=== PATIENT | male | born 1955 | race Asian ===

== ENCOUNTER 2017-02-05 15:13 | Emergency (ER) | payer OTHER, MEDICAID ==
[~2017-02-05] VITALS: Ht 180.3 cm; Wt 49.9 kg
[~2017-02-05 15:13] MED LIST: BACTRIM-DS1 EA ORAL; CEPHALEXIN500 MG PO; DUAC GEL45 GM TP; UNOBMED
[2017-02-05 15:19] VITALS: BP 132/84
[2017-02-05] MEDS ORDERED: LORazepam 1mg tab ORAL ONE (15:45)
[2017-02-05 16:51] LABS: LYMPHOCYTES % (AUTO) 27.6 % (20.0-45.0); MEAN CORPUSCULAR HEMOGLOBIN 33.4 PG (27.0-31.0); MEAN CORPUSCULAR HGB CONC 35.5 G/DL (32.0-36.0); MEAN CORPUSCULAR VOLUME 94 FL (80-99); MONOCYTES % (AUTO) 7.4 % (1.0-10.0); NEUTROPHILS % (AUTO) 62.9 % (45.0-75.0); PLATELET COUNT 200 K/UL (150-450); RED BLOOD COUNT 4.07 M/UL (4.70-6.10); RED CELL DISTRIBUTION WIDTH 10.9 % (11.6-14.8); WHITE BLOOD COUNT 4.3 K/UL (4.8-10.8)
[2017-02-05 17:11] LABS: TROPONIN I < 0.30 ng/mL (<=0.30)
[2017-02-05 17:14] LABS: ALANINE AMINOTRANSFERASE 19 U/L (3-41); ALBUMIN/GLOBULIN RATIO 1.1 (1.0-2.7); ANION GAP 10 (5-15); ASPARTATE AMINO TRANSFERASE 27 U/L (5-40); CALCIUM 9.2 mg/dL (8.6-10.2); CARBON DIOXIDE 25 mEQ/L (20-30); CHLORIDE 103 mEQ/L (98-107); CREATININE 0.9 mg/dL (0.7-1.2); GLOMERULAR FILTRATION RATE > 60 mL/min (>60); HEMOLYSIS 4; POTASSIUM 3.5 mEQ/L (3.4-4.9); SODIUM 138 mEQ/L (135-145); TOTAL PROTEIN 7.8 g/dL (6.6-8.7)
[2017-02-05 17:24] LABS: CKMB 2.1 ng/mL (< 6.7)
[2017-02-05 18:28] VITALS: BP 128/87
[2017-02-05 18:29] VITALS: BP 132/84
--- NOTE | 2017-02-05 22:37 | Emergency Room Report ---
History of Present Illness General Chief Complaint: Medical Clearance Source: EMS Present Illness HPI Patient is a 61-year-old male in custody presenting for medical clearance. The patient states that he has chest pain. He states that he has an extensive medical history including a right bundle branch block, anxiety disorder, schizophrenia, AIDS. He states pain is an 8/10 dull ache to the mid chest and does not radiate. No known provoking relieving factors. He denies shortness of breath. He states that he occasionally gets chest pain when he becomes anxious. He has not seen a doctor for the past year. He denies any other symptoms including nausea, vomiting, fever, chills, abdominal pain Allergies: Coded Allergies: No Known Allergies (Unverified , 11/06/12) Patient History Past Medical History: see triage record Pertinent Family History: none Reviewed Nursing Documentation: PMH: Agreed, PSxH: Agreed Nursing Documentation-PMH Past Medical History: No History, Except For Hx Cardiac Problems: Yes - left bundle branch block Hx Diabetes: Yes Hx Cancer: Yes - liver cancer aids History Of Psychiatric Problem: Yes - Anxiety, depression, schizophrenia Review of Systems All Other Systems: negative except mentioned in HPI Physical Exam Vital Signs Date Time Temp Pulse Resp B/P Pulse Ox O2 Delivery O2 Flow Rate FiO2 02/05/17 15:09 97.9 68 16 128/89 97 Room Air Sp02 EP Interpretation: reviewed, normal General Appearance: no apparent distress, alert, GCS 15, non-toxic Head: normocephalic, atraumatic Eyes: bilateral eye PERRL, bilateral eye normal inspection ENT: hearing grossly normal, normal pharynx, no angioedema, normal voice Respiratory: chest non-tender, lungs clear, normal breath sounds, speaking full sentences Cardiovascular #1: regular rate, rhythm, no edema, no murmur Gastrointestinal: normal bowel sounds, non tender, soft, non-distended, no guarding, no rebound Musculoskeletal: back normal, gait/station normal, normal range of motion, non- tender Neurologic: alert, oriented x3, responsive, motor strength/tone normal, sensory intact, speech normal Psychiatric: memory normal, mood/affect normal, no suicidal/homicidal ideation , anxious Skin: normal color, no rash, warm/dry, well hydrated Medical Decision Making PA Attestation Dr. Fernandez is my supervising physician. Patient management was discussed with my supervising physician Diagnostic Impression: Primary Impression: Chest pain Qualified Codes: R07.9 - Chest pain, unspecified ER Course The patient is a 61 yo M in custody presenting for medical clearance due to chest pain. DDx considered but not limited to: ACS, angina, anxiety, muscle strain, malingering, among others PE: vitals WNL. NAD. Mildly anxious. Chest is non tender. RRR. No MRG Lungs CTA bilat EKG shows a right bundle branch block among other concerning findings. Multiple requests for EKG from [facility] were made. None have been delivered as of 4 hours after request. Cardiac markers are essentially negative. Police have decided to release the patient under their care and states that he is able to be discharged when he is released. The patient is discharged and needs to FU with PMD, cardiology, and psychiatry. He agrees. ER precautions given Laboratory Tests Test 02/05/17 16:34 White Blood Count 4.3 K/UL (4.8-10.8) L Red Blood Count 4.07 M/UL (4.70-6.10) L Hemoglobin 13.6 G/DL (14.2-18.0) L Hematocrit 38.4 % (42.0-52.0) L Mean Corpuscular Volume 94 FL (80-99) Mean Corpuscular Hemoglobin 33.4 PG (27.0-31.0) H Mean Corpuscular Hemoglobin Concent 35.5 G/DL (32.0-36.0) Red Cell Distribution Width 10.9 % (11.6-14.8) L Platelet Count 200 K/UL (150-450) Mean Platelet Volume 6.0 FL (6.5-10.1) L Neutrophils (%) (Auto) 62.9 % (45.0-75.0) Lymphocytes (%) (Auto) 27.6 % (20.0-45.0) Monocytes (%) (Auto) 7.4 % (1.0-10.0) Eosinophils (%) (Auto) 1.0 % (0.0-3.0) Basophils (%) (Auto) 1.0 % (0.0-2.0) Sodium Level 138 mEQ/L (135-145) Potassium Level 3.5 mEQ/L (3.4-4.9) Chloride Level 103 mEQ/L (98-107) Carbon Dioxide Level 25 mEQ/L (20-30) Anion Gap 10 (5-15) Blood Urea Nitrogen 33 mg/dL (7-23) H Creatinine 0.9 mg/dL (0.7-1.2) Estimate Glomerular Filtration Rate > 60 mL/min (>60) Glucose Level 118 mg/dL (74-106) H Calcium Level 9.2 mg/dL (8.6-10.2) Total Bilirubin 0.5 mg/dL (0.0-1.2) Aspartate Amino Transferase (AST) 27 U/L (5-40) Alanine Aminotransferase (ALT) 19 U/L (3-41) Alkaline Phosphatase 86 U/L (40-129) Total Creatine Kinase 93 U/L (38-174) Creatine Kinase MB 2.1 ng/mL (< 6.7) Creatine Kinase MB Relative Index 2.2 Troponin I < 0.30 ng/mL (<=0.30) Total Protein 7.8 g/dL (6.6-8.7) Albumin 4.2 g/dL (3.5-5.2) Globulin 3.6 g/dL Albumin/Globulin Ratio 1.1 (1.0-2.7) Lab Results Impression Blood work unremarkable. Cardiac markers negative. EKG Diagnostic Results EP Interpretation: NSR. RBBB Rate: normal - 65 Rhythm: NSR ST Segments: other ASA given to the pt in ED: No PA Scribe Text RBBB. Dr. Fernandez has reviewed this EKG. Chest X-Ray Diagnostic Results Chest X-Ray Diagnostic Results : Chest X-Ray Ordered: Yes # of Views/Limited/Complete: 1 View Indication: Chest Pain EP Interpretation: Yes Interpretation: no consolidation, no effusion, no pneumothorax, no acute cardiopulmonary disease Impression: No acute disease Interpreting ER Provider: Dr. Fernandez PA Scribe Text My SP has reviewed the CXR and agrees with the findings above. Last Vital Signs Date Time Temp Pulse Resp B/P Pulse Ox O2 Delivery O2 Flow Rate FiO2 02/05/17 18:29 98.0 72 15 132/84 97 Room Air Disposition: HOME, SELF-CARE Condition: Improved Patient Instructions: Nonspecific Chest Pain Additional Instructions: I discussed my findings with the patient. All questions and concerns have been answered. Treatment and medication compliance have been addressed. I advised the patient that they need to follow up with PMD in 3-5 days. Return to ED if symptoms worsen, new symptoms arise, or if needed for any reason. Patient verbalized understanding of discharge instructions. BONG GOOD Feb 05, 2017 22:37
--- NOTE | 2017-02-06 08:31 | Diagnostic Imaging Report ---
Indication: Chest pain Technique: One view of the chest Comparison: 03/02/2008 Findings: Lungs and pleural spaces are clear. Heart size is normal . No significant change Impression: No acute process
--- NOTE | 2017-02-14 17:45 | Cardiology Report ---
APPROVED REPORT EKG Measurement Heart [id number] Normal sinus rhythm Left axis deviation Right bundle branch block Abnormal ECG
== END 2017-02-05 18:30 | disposition home or self-care (01) ==
LOC: EDBD 15:13 → EMR 15:23
DX: R07.89 Other chest pain (principal); E11.9 Type 2 diabetes mellitus without complications; F41.9 Anxiety disorder, unspecified; F32.9 Major depressive disorder, single episode, unspecified; Z85.05 Personal history of malignant neoplasm of liver; F20.9 Schizophrenia, unspecified
CPT/HCPCS: 36415; 71010; 80053; 82550; 82553; 84484; 85025; 93005; 99283